=== PATIENT | female | born 1980 | race American Indian/Alaskan Native ===

== ENCOUNTER 2021-06-13 20:45 | Emergency (ER) | payer OTHER ==
[2021-06-13] MEDS ORDERED: SODIUM CHLORIDE 0.9% 1000 ML 1,000 ML IV ONE (22:36)
[2021-06-13] MEDS ORDERED: METOCLOPRAMIDE 10 MG/2 ML INJ IV ONE (22:37)
[2021-06-13] MEDS ORDERED: diphenhydrAMINE 50 MG/ML VIAL IV ONE (22:37)
[2021-06-13] MEDS ORDERED: ACETAMINOPHEN 500 MG TAB PO ONE (22:37)
[2021-06-13] MEDS ORDERED: dexAMETHasone 20 MG/5 ML VIAL IV ONE (22:37)
--- NOTE | 2021-06-13 23:45 | Emergency Department Report ---
ED Headache HPI - General Chief Complaint: Headache Stated Complaint: DEHYDRATION,MIGRAINE FOR 4 DAYS Time Seen by Provider: 06/13/21 22:18 - History of Present Illness Initial Comments: Patient 41-year-old -[place] female with a history of migraine headaches who presents with frontal headache sharp 5/10 for the past day. Symptoms and usual location and intensity as other headaches. Patient states photophobia with nausea vomiting with this headache. There is no fever or chills or other sinus pressure, and photophobia.'s are exacerbated by light exposure and activity. Symptoms are relieved by nothing tried. He states 1 episode of nausea vomiting today. Patient is tolerating p.o. hydration at this time however. Patient denies ear or throat pain. No neck pain. There is no numbness or tingling. She denies vertigo Timing/Duration: 24 hours, waxing and waning Allergies/Adverse Reactions: Allergies No Known Allergies Allergy (Unverified 06/13/21 20:51) Home Medications: Ambulatory Orders Acetaminophen [Acetaminophen TAB] 100 mg PO Q8HR PRN #30 tablet 06/14/21 Metoclopramide [Reglan] 10 mg PO ACHS PRN 750 Days #30 tablet 06/14/21 diphenhydrAMINE [Benadryl CAP] 25 mg PO Q6HR PRN 7 Days #30 capsule 06/14/21 predniSONE [Deltasone] 40 mg PO QDAY PRN 5 Days #10 tab 06/14/21 ED Review of Systems ROS: Stated complaint: DEHYDRATION,MIGRAINE FOR 4 DAYS Other details as noted in HPI Constitutional: denies: chills, fever Eyes: other (Photophobia). denies: eye discharge, vision change ENT: congestion. denies: ear pain, throat pain, dental pain, hearing loss, epistaxis Respiratory: denies: cough, shortness of breath, wheezing Cardiovascular: denies: chest pain, palpitations Endocrine: no symptoms reported Gastrointestinal: nausea, vomiting. denies: abdominal pain, diarrhea, constipation Genitourinary: denies: urgency, dysuria, discharge Musculoskeletal: denies: back pain, joint swelling, arthralgia Skin: denies: rash, lesions Neurological: headache. denies: weakness, numbness, paresthesias, confusion, vertigo Psychiatric: denies: anxiety, depression Hematological/Lymphatic: denies: easy bleeding, easy bruising ED Past Medical Hx - Past Medical History Previous Medical History?: Yes Hx Hypertension: Yes Additional medical history: migraine BAUER - Surgical History Past Surgical History?: Yes Additional Surgical History: - Medications Home Medications: Home Medications Medication Instructions Recorded Confirmed Last Taken Type Acetaminophen [Acetaminophen TAB] 100 mg PO Q8HR PRN #30 tablet 06/14/21 Unknown Rx Metoclopramide [Reglan] 10 mg PO ACHS PRN 750 Days #30 06/14/21 Unknown Rx tablet diphenhydrAMINE [Benadryl CAP] 25 mg PO Q6HR PRN 7 Days #30 06/14/21 Unknown Rx capsule predniSONE [Deltasone] 40 mg PO QDAY PRN 5 Days #10 tab 06/14/21 Unknown Rx ED Physical Exam - General Limitations: No Limitations General appearance: alert, in no apparent distress - Head Head exam: Present: normocephalic, normal inspection - Eye Eye exam: Present: PERRL, EOMI. Absent: conjunctival injection, nystagmus Pupils: Present: normal accommodation - ENT ENT exam: Present: normal orophraynx, mucous membranes moist, TM's normal bilaterally, normal external ear exam - Neck Neck exam: Present: normal inspection, full ROM. Absent: tenderness, meningismus, lymphadenopathy, thyromegaly - Respiratory Respiratory exam: Present: normal lung sounds bilaterally. Absent: respiratory distress, wheezes, stridor, chest wall tenderness - Cardiovascular Cardiovascular Exam: Present: regular rate, normal rhythm, normal heart sounds. Absent: systolic murmur, diastolic murmur, rubs, gallop - GI/Abdominal GI/Abdominal exam: Present: soft, normal bowel sounds. Absent: distended, tenderness, guarding, rebound, rigid, bruit, hernia - Rectal Rectal exam: Present: deferred - Extremities Exam Extremities exam: Present: normal inspection, full ROM, normal capillary refill. Absent: tenderness - Back Exam Back exam: Present: normal inspection. Absent: full ROM, CVA tenderness (R), CVA tenderness (L), vertebral tenderness - Neurological Exam Neurological exam: Present: alert, oriented X3, CN II-XII intact, normal gait, reflexes normal. Absent: motor sensory deficit - Expanded Neurological Exam Expanded Patient oriented to: Present: person, place, time Speech: Present: fluid speech Cranial nerves: EOM's Intact: Normal, Gag Reflex: Normal, Nystagmus: Normal Motor strength exam: RUE: 5, LUE: 5, RLE: 5, LLE: 5 DTR: knee (L): 1+, ankle (R): 1+ Best Eye Response ([place]): (4) open spontaneously Best Motor Response ([place]): (6) obeys commands Best Verbal Response ([place]): (5) oriented [place] Total: 15 - Psychiatric Psychiatric exam: Present: normal affect, normal mood - Skin Skin exam: Present: warm, dry, intact, normal color. Absent: rash ED Course Vital Signs 06/13/21 06/14/21 20:47 01:24 Temperature 100.4 F H Pulse Rate 89 Respiratory 16 16 Rate Blood Pressure 140/89 [Left] O2 Sat by Pulse 100 Oximetry ED Medical Decision Making - Medical Decision Making Symptoms are improved with medications given in ED. Patient DC'd home in stable condition at this time, with medicines as given in ED. Patient will follow up with primary care doctor in 2 to 3 days. Patient will return to emergency department should symptoms worsen Critical care attestation.: If time is entered above; I have spent that time in minutes in the direct care of this critically ill patient, excluding procedure time. ED Disposition Clinical Impression: Headache Qualifiers: Headache type: unspecified Headache chronicity pattern: acute headache In tractability: not intractable Qualified Code(s): R51.9 - Headache, unspecified Disposition: 01 HOME / SELF CARE / HOMELESS Is pt being admited?: No Does the pt Need Aspirin: No Condition: Stable Instructions: Migraine Headache, [id number], Migraine Headache Additional Instructions: Take medication as prescribed, follow-up with your doctor in 2 to 3 days. Return to emergency department if symptoms worsen. Prescriptions: Acetaminophen [Acetaminophen TAB] 100 mg PO Q8HR PRN #30 tablet PRN Reason: pain diphenhydrAMINE [Benadryl CAP] 25 mg PO Q6HR PRN 7 Days #30 capsule PRN Reason: Headache predniSONE [Deltasone] 40 mg PO QDAY PRN 5 Days #10 tab PRN Reason: Headache Metoclopramide [Reglan] 10 mg PO ACHS PRN 750 Days #30 tablet PRN Reason: Headache Referrals: REECE DELGADO MD [Referring] - 3-5 Days SANAM ARRIOLA MD [Staff Physician] - 3-5 Days Forms: Work/School Release Form(ED) Time of Disposition: 03:12
[2021-06-14 06:13] VITALS: BP 128/78
== END 2021-06-14 06:13 | disposition home or self-care (01) ==
LOC: ED 20:45
DX: G43.909 Migraine, unspecified, not intractable, without status migrainosus (principal); I10 Essential (primary) hypertension; Z98.890 Other specified postprocedural states; Z79.899 Other long term (current) drug therapy
CPT/HCPCS: 96361; 96374; 96375; 99282; J1100; J1200; J2765; J7030; 90471; 96365; 99283